=== PATIENT | male | born 1990 | race Asian ===

== ENCOUNTER 2025-08-05 12:32 | Emergency (ER) | payer SELFPAY ==
--- OUTSIDE RECORDS SUMMARY | 2025-08-05 12:34 | XMS REPORT | Continuity of Care Document ---
Author Name Unknown Address [address] [facility] [address] [place] [address] Organization [facility] [place] Address [address] [facility] [address] [place] [address] Care Team Providers Care Ict Business Development Manager Name Role Phone PCP, PATIENT DOES NOT HAVE A Primary Care Physic aaron ANA LUISA Denny Attending Clinician ANA LUISA Godoy Attending Clinician Unavailab [facility]ending Clinician Un available Unknown, Attending Attending Clinician Unavailab Goldberg, Adc Fam Pob I Attending Clinician UnavailSharee Holder Attending Clinician [phone] Doctor Unassigned, [place] Attending Clinician U navailable UNKNOWN, ATTENDING Attending Clinician ANA LUISA Godoy Admitting Clinician DALE Reynoso Admitting Clinician Unavail able Payers Payer Name Policy Type Policy Number Effective Date Expirati on Date Source Allergies, Adverse Reactions, Alerts Allergy Name Allergy Type Status Severity Reaction(s) Onset Date Inactive Date Treating Clinician Comments Source NO KNOWN ALLERGIE S Drug Class Active [facility] Social History Social Habit Start Date Stop Date Quantity Comments Source Sexual orientation U [facility] Exposure to SARS-CoV-2 (event) Yes [facility] Sex assigned at 1990 00:00:00 1990 00:00:00 [facility] Smoking Status Start Date Stop Date Source Tobacco smoking consumption unknown [facility] Vital Signs Vital Name Observation Time Observation Value Comments S ource Body temperature 2025-04-17 01:45:00 37 Madeline [facility] Systolic blood pressure 2025-04-17 01:44:00 151 mm[Hg] [facility] Diastolic blood pressure 2025-04-17 01:44:00 103 mm[Hg] [facility] Heart rate 2025-04-17 01:44:00 88 /min [facility] Respiratory rate 2025-04-17 01:44:00 18 /min [facility] Oxygen saturation in Arterial blood by Pulse oximetry 2025-04-17 01:44:00 96 /min [facility] Body height 2025-04-17 00:19:[address] [facility] Body weight 2025-04-17 00:19:[address] [facility] BMI 2025-04-17 00:19:00 53.98 kg/m2 [facility] Systolic blood pressure 2025-04-16 23:58:00 166 mm[Hg] [facility] Diastolic blood pressure 2025-04-16 23:58:00 84 mm[Hg] [facility] Heart rate 2025-04-16 23:58:00 101 /min [facility] rate 2025-04-16 23:58:00 16 /min [facility] Body weight 2025-04-16 23:58:[address] [facility] Oxygen saturation in Arterial blood by Pulse oximetry 2025-04-16 23:58:00 99 /min [facility] Procedures Procedure Date / Time Performed Performing Clinicia n Source EKG-12 LEAD 2025-04-17 01:41:15 [facility] 2025-04-17 00:55:00 [facility] COMP. METABOLIC PANEL (36668) 2025-04-17 00:55:00 Ana Luisa Katz [facility] CBC WITH DIFF 2025-04-17 00:55:00 Ana Luisa Katz [facility] XR CHEST 1 VW 2025-04-17 00:37:56 Ana Luisa Katz [facility] Encounters Start Date/Time End Date/Time Encounter Type Admission Type Attending Clinicians Care Facility Care Department Encounter ID Source 2025-04-16 19:20:00 2025-04-16 20:51:00 Emergency X ANA LUISA KATZ [facility] ERT [id number] [facility] 2025-04-16 18:45:00 2025-04-16 19:05:00 Nurse Visit Nurse, [facility] Unknown, Attending Nurse, [facility] 1..840.114 [id number] [id number] [facility] 2021-05-31 18:14:59 2021-05-31 18:34:59 Laboratory Only Lab, Adc Fam Pob I Aisha, Sharee [facility] 1..840.114 [id number] [id number] [facility] 2021-05-31 00:00:00 2021-05-31 00:00:00 Letter (Out) Doctor Unassigned, [place] [facility] 1..840.114 350.1.13.10 [id number] [facility] 2016-10-27 15:00:00 2016-10-27 23:59:00 Outpatient R UNKNOWN, ATTENDING [facility] RAD [id number] [facility] Results Test Description Test Time Test Comments Results Result Co mments Source [facility] (25398)2025-04-17 01:22:10* Test Item Value Reference Range Interpretation Comme nts NA (test code = 4500190234) 139 mmol/L 135-145 K (test code = 2979009029) 4 mmol/L 3.5-5.0 CL (test code = 9105908626) 105 mmol/L 98-108 CO2 TOTAL (test code = 8876488269) 24 mmol/L 23-31 AGAP (test code = 6736171853) 10 2-16 BUN (test code = 0762841983) 14 mg/dL 7-23 GLUCOSE (test code = 8915167189) 102 mg/dL 70-110 CREATININE (test code = 2160-0) 1.01 mg/dL 0.60-1.25 TOTAL BILI (test code = 9044324359) 0.8 mg/dL 0.1-1.1 CALCIUM (test code = 4837186149) 9.6 mg/dL 8.6-10.6 T PROTEIN (test code = 7815237810) 8.7 g/dL 6.3-8.2 H ALBUMIN (test code = 3815584639) 4.9 g/dL 3.5-5.0 ALK PHOS (test code = 8351880974) 53 U/L 34-122 ALTv (test code = 1742-6) 27 U/L 5-50 AST(SGOT) (test code = 7349291607) 45 U/L 13-40 H eGFR (test code = 50225-7) 100.1 mL/min/1.73m2 CKD-EPI eGFR (2020). Assuming creatinine has been stable day-to-day for at least three months, the eGFR indicates Category G1 (>= 90 mL/min/1.73 m2) Lab Interpretation (test code = 19567-1) Abnormal [facility] WITH [id number] 01:08:45* Test Item Value Reference Range Interpretation Comme nts WBC (test code = 6690-2) 9.32 4.20-10.70 RBC (test code = 789-8) 4.89 4.26-5.52 HGB (test code = 718-7) 14.6 g/dL 12.2-16.4 HCT (test code = 4544-3) 43.5 % 38.4-49.3 MCV (test code = 787-2) 89 fL 81.7-95.6 MCH (test code = 785-6) 29.9 pg 26.1-32.7 MCHC (test code = 786-4) 33.6 g/dL 31.2-35.0 RDW-SD (test code = 16214-1) 43.2 fL 38.5-51.6 RDW-CV (test code = 788-0) 13.2 % 12.1-15.4 PLT (test code = 777-3) 292 150-328 MPV (test code = 77350-3) 10.9 fL 9.8-13.0 NRBC/100 WBC (test code = 5164477231) 0 0.0-10.0 NRBC x10^3 (test code = 0723457538) See_Comment [Automated messa ge] The system which generated this result transmitted reference range: 10*3/?L. The reference range was not used to interpret this result as normal/abnormal. GRAN MAT (NEUT) % (test code = 770-8) 46.1 % IMM GRAN % (test code = 0869819088) 0.2 % LYMPH % (test code = 736-9) 41 % MONO % (test code = 5905-5) 9.5 % EOS % (test code = 713-8) 2.7 % BASO % (test code = 706-2) 0.5 % GRAN MAT x10^3(ANC) (test code = 2028125735) 4.29 10*3/uL 1.99-6.95 IMM GRAN x10^3 (test code = 9240126961) 0.00-0.06 LYMPH x10^3 (test code = 731-0) 3.82 10*3/uL 1.09-3.23 H MONO x10^3 (test code = 742-7) 0.89 10*3/uL 0.36-1.02 EOS x10^3 (test code = 711-2) 0.25 10*3/uL 0.06-0.53 BASO x10^3 (test code = 704-7) 0.05 10*3/uL 0.01-0.09 Lab Interpretation (test code = 45787-0) [facility]normal [facility] [id number] 00:57:31EXAM: XR CHEST 1 04/16/2025 7:34 PM HISTORY: 34 years old Male with chest pain TECHNIQUE: Portable AP view of the chest. COMPARISON: None FINDINGS: Lines/tubes and devices: None. Lungs and pleura: The lungs are clear. No focal consolidation,pneumothorax, or pleural effusion is seen. Cardiomediastinal: The cardiomediastinal silhouette is normal accountingfor technique. Musculoskeletal: No acute osseous abnormality.[facility] Notes Date/Time Note Provider Source 2025-04-16 20:50:43 Pt given printed and verbal discharge instructions regarding chest pain and HTN, encouraged hydration, Pt verbalized understanding of instructions, pt awake alert oriented, resp reg unlabored, skin w/d, color appropriate for race, moves all ext well,pt encouraged to follow up with pcp and cardiology Advised to seek medical attention for new/prolonged/worsening of symptoms PIV d'cd, dressing to site, catheter in tact. Awake, alert oriented, resp reg unlabored, skin w/d, pt leaving amb with steady gait, in no apparent distress, Randolph Doherty RN [facility] 2025-04-16 19:16:28 Patient arrived ambulatory to ED c/o left sided intermittent chest pain for a couple of days. No trauma or injuries recently. 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 Takes Lisinopril for HTN. 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 Today is Wednesday. He reports the pain is very mild only rates it a 1 out of 10. He reports no change in his pain with exertion, deep breathing or movement of his arms. No medication taken for his pain. No injury or trauma. No shortness of breath. No cough or congestion. He does not smoke. He does have a history of high blood pressure and admits to compliance with his medication. He last saw his PCP about 6 weeks ago. Here for evaluation. Past Medical History/Immunizations: History reviewed. No pertinent past medical history. Tetanus received in last 5 years: Unknown Allergies: No Known Allergies Past Social History: Substance & Sexual Activity No substance use or sexual activity history on file. Past Surgical History: History reviewed. No pertinent surgical history. Review of Systems: Review of Systems Constitutional: Negative for chills and fever. Respiratory: Negative for cough and shortness of breath. Cardiovascular: Positive for chest pain. Gastrointestinal: Negative for abdominal pain and vomiting. Genitourinary: Negative for dysuria. Musculoskeletal: Negative for arthralgias, neck pain and neck stiffness. Skin: Negative for wound. Neurological: Negative for dizziness. Psychiatric/Behavioral: Negative for agitation. Endocrine: Negative for goiter. Physical Exam: Physical Exam ED Triage Vitals [04/16/251918] Weight 180.5 kg (398 lb) Actual or estimated Estimated by patient/family report Height 1.829 m (6') BP (!) 186/104 Pulse 81 Resp 20 Temp 36.9 ?C (98.4 ?F) Temp source Oral SpO2 100 % Measured on Room air Physical Exam Vitals and nursing note reviewed. Constitutional: Appearance: Normal appearance. He is morbidly obese. HENT: Head: Normocephalic and atraumatic. Cardiovascular: Rate and Rhythm: Normal rate and regular rhythm. Pulses: Normal pulses. Pulmonary: Effort: Pulmonary effort is normal. No respiratory distress. Breath sounds: No wheezing. Chest: Chest wall: No tenderness. Abdominal: General: There is no distension. Palpations: Abdomen is soft. Tenderness: There is no abdominal tenderness. There is no guarding. Musculoskeletal: General: Normal range of motion. Cervical back: Normal range of motion and neck supple. Skin: General: Skin is warm and dry. Neurological: General: No focal deficit present. Mental Status: He is alert and oriented to person, place, and time. Radiology: XR CHEST 1 VW Final Result EXAM: XR CHEST 1 VW 04/16/2025 7:34 PM HISTORY: 34 years old Male with chest pain TECHNIQUE: Portable AP view of the chest. COMPARISON: None FINDINGS: Lines/tubes and devices: None. Lungs and pleura: The lungs are clear. No focal consolidation, pneumothorax, or pleural effusion is seen. Cardiomediastinal: The cardiomediastinal silhouette is normal accounting for technique. Musculoskeletal: No acute osseous abnormality. IMPRESSION No acute cardiopulmonary abnormality. Lab Results: Lab Results CBC WITH DIFF - Abnormal Result Value Ref Range WBC 9.32 4.20 - 10.70 10*3/?L RBC 4.89 4.26 - 5.52 10*6/?L HGB 14.6 12.2 - 16.4 g/dL HCT 43.5 38.4 - 49.3 % MCV 89.0 81.7 - 95.6 fL MCH 29.9 26.1 - 32.7 pg MCHC 33.6 31.2 - 35.0 g/dL RDW-SD 43.2 38.5 - 51.6 fL RDW-CV 13.2 12.1 - 15.4 % PLT 292 150 - 328 10*3/?L MPV 10.9 9.8 - 13.0 fL NRBC/100 WBC 0.0 0.0 - 10.0 /100 WBCs NRBC x10 3 <0.01 10*3/?L GRAN MAT (NEUT) % 46.1 % IMM GRAN % 0.20 % LYMPH % 41.0 % MONO % 9.5 % EOS % 2.7 % BASO % 0.5 % GRAN MAT x10 3 (ANC) 4.29 1.99 - 6.95 10*3/uL IMM GRAN x10 3 <0.03 0.00 - 0.06 10*3/uL LYMPH x10 3 3.82 (*) 1.09 - 3.23 10*3/uL MONO x10 3 0.89 0.36 - 1.02 10*3/uL EOS x10 3 0.25 0.06 - 0.53 10*3/uL BASO x10 3 0.05 0.01 - 0.09 10*3/uL COMP. METABOLIC PANEL (50234) - Abnormal NA 139 135 - 145 mmol/L K 4.0 3.5 - 5.0 mmol/L CL 105 98 - 108 mmol/L CO2 TOTAL 24 23 - 31 mmol/L AGAP 10 2 - 16 BUN 14 7 - 23 mg/dL GLUCOSE 102 70 - 110 mg/dL CREATININE 1.01 0.60 - 1.25 mg/dL TOTAL BILI 0.8 0.1 - 1.1 mg/dL CALCIUM 9.6 8.6 - 10.6 mg/dL T PROTEIN 8.7 (*) 6.3 - 8.2 g/dL ALBUMIN 4.9 3.5 - 5.0 g/dL ALK PHOS 53 34 - 122 U/L ALTv 27 5 - 50 U/L AST(SGOT) 45 (*) 13 - 40 U/L eGFR 100.1 mL/min/1.73m2 TROPONIN I - Normal TROPONIN I 0.013 <=0.034 ng/mL EKG: If EKG completed, see Procedure Note. Orders and Treatments: Orders Placed This Encounter Procedures XR CHEST 1 VW CBC WITH DIFF COMP. METABOLIC PANEL (05331) TROPONIN I No orders of the defined types were placed in this encounter. First Provider Eval: ED Events Date/Time Event User Comments 04/16/251914 Medical Screening Begins ANA LUISA KATZ DO -- 04/16/251914 First Provider Evaluation ANA LUISA KATZ DO -- ED COURSE Diagnosis/Impression as of 04/16/252040 Chest pain, unspecified type Results Procedures: EKG-12 Lead ROUTINE ONCE Date/Time: 04/16/2025 7:30 PM Performed by: Ana Luisa Katz DO Authorized by: Ana Luisa Katz DO ECG interpreted by ED Physician in the absence of a part maker: yes Interpretation: Interpretation: normal Rate: ECG rate: 97 ECG rate assessment: normal Rhythm: Rhythm: sinus rhythm Ectopy: Ectopy: none QRS: QRS axis: Normal QRS intervals: Normal QRS conduction: normal ST segments: ST segments: Normal T waves: T waves: normal Q waves: Abnormal Q-waves: not present MDM: Assessment & Plan Medical Decision Making The patient presents from home for evaluation for discomfort of his chest that he first noted on Wednesday. Today is Wednesday. He reports the pain is very mild only rates it a 1 out of 10. He reports no change in his pain with exertion, deep breathing or movement of his arms. No medication taken for his pain. No injury or trauma. No shortness of breath. No cough or congestion. He does not smoke. He does have a history of high blood pressure and admits to compliance with his medication. He last saw his PCP about 6 weeks ago. The patient is hypertensive upon arrival to the ER. He is morbidly obese. His heart is regular rhythm. His lungs are clear bilaterally. He has no pitting edema to his bilateral legs. Low concern for ACS based on his presentation. Will obtain EKG and check laboratory studies. Anticipate discharge home later. 2039 -The patient is doing well here in the ER. his chest x-ray shows no acute cardiopulmonary issues. His laboratory studies included normal troponin as well as normal glucose and kidney function. 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 He report he had no issues with his blood pressure when he was on the 40 mg tablets. Recommended that he increase his dose back to 40 mg daily and follow-up with his PCP in 1 week for a blood pressure check. He remained stable in the ER and is okay for discharge home with PCP follow-up in 1 week. Problems Addressed: Chest pain, unspecified type: acute illness or injury Amount and/or Complexity of Data Reviewed Labs: ordered. Decision-making details documented in ED Course. Radiology: ordered and independent interpretation performed. Decision-making details documented in ED Course. ECG/medicine tests: ordered and independent interpretation performed. Decision-making details documented in ED Course. Flowsheet Documentation: Scoring Tools: No data recorded Disposition/Condition: ED Disposition ED Disposition Discharge Condition Stable Comment -- Discharge Medications: Patient's Medications No medications on file Follow-up: Electronically signed by: Ana Lusia Katz DO 04/16/252040 [facility]
[2025-08-05] MEDS ORDERED: KETOROLAC 30 MG/ML INJ ONE (14:14)
[2025-08-05] MEDS ORDERED: ONDANSETRON 4 MG/2 ML VIAL ONE (14:14)
[2025-08-05] MEDS ORDERED: FAMOTIDINE 20 MG/2 ML VIAL IV ONE (14:14)
[2025-08-05] MEDS ORDERED: NA CHLORIDE 0.9% 1,000 ML ONE (14:15)
[2025-08-05 14:34] LABS: Absolute Lymphocytes (CBC) 0.8 K/uL (0.7-4.9); Hematocrit 47.5 % (39.6-49.0); Hemoglobin 15.6 g/dL (13.6-17.9); MCH 28.8 pg (27.0-35.0); MCHC 32.9 g/dL (32.0-36.0); MCV 87.4 fL (80-100); MPV 10.0 fL (7.6-11.3); Nucleated RBC Absolute Count 0.0 (0-0); Nucleated Red Blood Cells % 0.0 % (0-0); RBC Red Blood Cell Count 5.43 M/uL (4.33-5.43); White Blood Count 14.70 thou/uL (4.3-10.9)
[2025-08-05 16:30] LABS: ALT/SGPT 25.0 U/L (16-61); AST/SGOT 22.0 U/L (15-37); Albumin 4.0 g/dL (3.4-5.0); Albumin/Globulin Ratio 1.0 (1.1-1.8); Alkaline Phosphatase 66.0 U/L (45-117); Anion Gap 11.0 mEq/L (5.0-15.0); BUN Blood Urea Nitrogen 13.0 mg/dL (7-18); Globulin 3.9 g/dL (2.3-3.5); Glucose Level 110.0 mg/dL (74-106); Lipase 15.0 U/L (13-75); Potassium 4.0 mEq/L (3.5-5.1)
--- NOTE | 2025-08-05 16:32 | EDPHYS ---
Physician Documentation [facility] Name: Carrol Fallon Age: 34 yrs Sex: Male : 1990 Arrival Date: 08/05/2025 Time: 12:32 Bed 16 Private MD: ED Physician Nigel Long HPI: 08/05 16:22 This 34 yrs old Male presents to ER via Ambulatory with complaints of Vomiting. kb 16:22 Patient is a 34-year-old male who presents for nausea, vomiting, abdominal pain, kb diarrhea that started in the middle of the night last night. Denies fever. Child has similar symptoms.. Historical: - Allergies: 13:00 No Known Allergies; dd2 - PMHx: 13:00 Hypothyroidism; Hypertensive disorder; dd2 - PSHx: 13:00 Cholecystectomy; dd2 - Immunization history:: Adult Immunizations unknown. - Infectious Disease History:: Denies. - Social history:: Smoking status: Patient denies any tobacco usage or history of. ROS: 16:21 Constitutional: As per HPI kb Exam: 16:21 Constitutional: This is a well developed, well nourished patient who is awake, alert, kb and in no acute distress. Head/Face: Normocephalic, atraumatic. ENT: Moist Mucous membranes Cardiovascular: Regular rate Respiratory: Respirations even and unlabored. No increased work of breathing. Talking in full sentences Abdomen/GI: Soft, non-tender. No distention Skin: Warm, dry with normal turgor. Normal color. MS/ Extremity: Pulses equal, no cyanosis. Neurovascular intact. Full, normal range of motion. Neuro: Awake and alert, GCS 15, oriented to person, place, time, and situation. Vital Signs: 12:58 BP 146 / 92; Pulse 92; Resp 16; Temp 99; Pulse Ox 99% ; Weight 172.37 kg; Height 6 ft. dd2 0 in. ; Pain 10/10; 14:00 BP 131 / 85; Pulse 96; Resp 20; Pulse Ox 99% on R/A; kj2 15:58 BP 142 / 86; Pulse 94; Resp 18; Pulse Ox 99% on R/A; kj2 16:54 BP 128 / 74; Pulse 84; Resp 18; Temp 98.1; Pulse Ox 100% on R/A; kj2 12:58 Body Mass Index 51.54 (172.37 kg, 182.88 cm) dd2 12:58 Pain Scale: Adult dd2 MDM: 12:37 Medical Screening Exam initiated kb 16:22 Differential diagnosis: viral gastroenteritis, Abnormal electrolytes, dehydration. Data kb reviewed: vital signs, nurses notes. Test considered but Not performed: CT: CT scan considered but symptoms improved after treatment, patient has no abdominal tenderness. 16:31 Counseling: I had a detailed discussion with the patient and/or guardian regarding the kb historical points, exam findings, and any diagnostic results supporting the discharge/admit diagnosis, lab results, the need for outpatient follow up, a family practitioner, to return to the emergency department if symptoms worsen or persist or if there are any questions or concerns that arise at home. 08/05 13:11 Order name: CBC with Diff; Complete Time: 14:38 kb 08/05 13:11 Order name: CMP; Complete Time: 16:31 kb 08/05 13:11 Order name: Lipase; Complete Time: 16:31 kb 08/05 13:11 Order name: IV Saline Lock; Complete Time: 14:26 kb 08/05 13:11 Order name: Labs collected and sent; Complete Time: 14:26 kb 08/05 14:41 Order name: Labs - recollect needed: recollect chemistries; Complete Time: 15:49 eb Administered Medications: 14:25 Drug: Famotidine IVP 20 mg IVP once; dilute with 10 mL 0.9% NaCl; give over 2 minutes kj2 Route: IVP; Site: left upper arm; 15:00 Follow up: Response: No adverse reaction kj2 14:26 Drug: TORadol - Ketorolac IVP 15 mg IVP once Route: IVP; Site: left upper arm; kj2 16:56 Follow up: Response: No adverse reaction kj2 14:26 Drug: Ondansetron IVP 4 mg IVP once; over 2 minutes Route: IVP; Site: left upper arm; kj2 15:00 Follow up: Response: No adverse reaction kj2 14:26 Drug: NS 0.9% IV 1000 ml IV at 1 bolus Per protocol; to be given as a bolus over 60 kj2 minutes Route: IV; Rate: 1 bolus; Site: left upper arm; 16:55 Follow up: IV Status: Completed infusion; IV Intake: 1000ml kj2 Disposition: 17:26 Co-signature as Attending Physician, Nigel Long MD I reviewed the patient's care rn provided by the Advanced Practice Provider and agree with the diagnosis and treatment plan. Disposition Summary: 08/05/25 16:32 Discharge Ordered Notes: Location: Home kb Condition: Stable kb Diagnosis - Nausea with vomiting, unspecified kb - Diarrhea, unspecified kb Followup: kb - With: Emergency Department - When: As needed - Reason: Worsening of condition Followup: kb - With: Private Physician - When: 2 - 3 days - Reason: Recheck today's complaints, Continuance of care, Re-evaluation by your physician Discharge Instructions: - Discharge Summary Sheet kb - Viral Gastroenteritis, Adult, [id number] kb Forms: - Medication Reconciliation Form kb - Antibiotic Education kb - Prescription Opioid Use kb - Patient Portal Instructions kb - Leadership Thank You Letter kb Prescriptions: - ondansetron 4 mg Oral Tablet,disintegrating - take 1 tablet ORAL route every 6 hours as needed for nausea and vomiting; 12 kb tablet; Refills: 0, Product Selection Permitted Signatures: Dispatcher [employer] EDMS Daniella Crews, FOREIGN LAW CONSULTANT-C FOREIGN LAW CONSULTANT-Ckb Nigel Long MD MD rn Botello, Elizabeth eb Jordan, Krystal RN RN kj2 CAROL CARVALHO RN RN dd2 Corrections: (The following items were deleted from the chart) 13:00 13:00 PSHx: None; dd2 dd2 13:12 13:12 CBC+H.LAB.BRZ ordered. EDMS EDMS 13:12 13:12 COMPREHENSIVE METABOLIC PANEL+C.LAB.BRZ ordered. EDMS EDMS 13:12 13:12 LIPASE+C.LAB.BRZ ordered. EDMS EDMS
--- NOTE | 2025-08-05 16:32 | ER ---
Nurse's Notes [facility] Name: Carrol Fallon Age: 34 yrs Sex: Male : 1990 Arrival Date: 08/05/2025 Time: 12:32 Bed 16 Private MD: Diagnosis: Nausea with vomiting, unspecified;Diarrhea, unspecified Presentation: 08/05 12:58 Chief complaint: Patient states: WOKE AT 2 AM WITH N/V AND ABDOMINAL PAIN. PT REPORTS dd2 DIARRHEA. Coronavirus screen: diarrhea, fatigue, nausea, vomiting. Ebola Screen: No symptoms or risks identified at this time. Initial Sepsis Screen: Does the patient meet any 2 criteria? No. Patient's initial sepsis screen is negative. Does the patient have a suspected source of infection? No. Patient's initial sepsis screen is negative. Risk Assessment: Do you want to hurt yourself or someone else? Patient reports no desire to harm self or others. Onset of symptoms was August 05, 2025 at 02:00. 12:58 Method Of Arrival: Ambulatory dd2 12:58 Acuity: BELLA 3 dd2 Triage Assessment: 13:00 General: Appears in no apparent distress. uncomfortable, Behavior is calm, cooperative, dd2 appropriate for age. Pain: Complains of pain in abdomen Pain currently is 10 out of 10 on a pain scale. GI: Abd is soft and non tender X 4 quads. Reports lower abdominal pain, upper abdominal pain, diarrhea, nausea, vomiting. Historical: - Allergies: 13:00 No Known Allergies; dd2 - PMHx: 13:00 Hypothyroidism; Hypertensive disorder; dd2 - PSHx: 13:00 Cholecystectomy; dd2 - Immunization history:: Adult Immunizations unknown. - Infectious Disease History:: Denies. - Social history:: Smoking status: Patient denies any tobacco usage or history of. Screenin:00 [facility] ED Fall Risk Assessment (Adult) History of falling in the last 3 months, kj2 including since admission No falls in past 3 months (0 pts) Confusion or Disorientation No (0 pts) Intoxicated or Sedated No (0 pts) Impaired Gait No (0 pts) Mobility Assist Device Used No (0 pt) Altered Elimination No (0 pt) Score/Fall Risk Level 0 - 2 = Low Risk Maintained a safe environment, Hourly rounding (assess needs \T\ fall precautionary measures) done. Abuse screen: Denies threats or abuse. Denies injuries from another. Nutritional screening: No deficits noted. Tuberculosis screening: No symptoms or risk factors identified. Assessment: 14:00 General: Appears uncomfortable, Behavior is cooperative. Pain: Complains of pain in kj2 abdomen Pain currently is 6 out of 10 on a pain scale. Neuro: Level of Consciousness is awake, alert, obeys commands, Oriented to person, place, time, situation. Cardiovascular: Patient's skin is warm and dry. Respiratory: Airway is patent Respiratory effort is unlabored. GI: Abdomen is Last BM was August 05, 2025. : No signs and/or symptoms were reported regarding the genitourinary system. 15:00 Reassessment: Patient appears in no apparent distress at this time. Patient and/or kj2 family updated on plan of care and expected duration. Pain level reassessed. Patient is alert, oriented x 3, equal unlabored respirations, skin warm/dry/pink. 16:00 Reassessment: Patient appears in no apparent distress at this time. Patient and/or kj2 family updated on plan of care and expected duration. Pain level reassessed. Patient is alert, oriented x 3, equal unlabored respirations, skin warm/dry/pink. 16:54 Reassessment: Patient appears in no apparent distress at this time. Patient and/or kj2 family updated on plan of care and expected duration. Pain level reassessed. Vital Signs: 12:58 BP 146 / 92; Pulse 92; Resp 16; Temp 99; Pulse Ox 99% ; Weight 172.37 kg; Height 6 ft. dd2 0 in. ; Pain 10/10; 14:00 BP 131 / 85; Pulse 96; Resp 20; Pulse Ox 99% on R/A; kj2 15:58 BP 142 / 86; Pulse 94; Resp 18; Pulse Ox 99% on R/A; kj2 16:54 BP 128 / 74; Pulse 84; Resp 18; Temp 98.1; Pulse Ox 100% on R/A; kj2 12:58 Body Mass Index 51.54 (172.37 kg, 182.88 cm) dd2 12:58 Pain Scale: Adult dd2 ED Course: 12:36 Patient arrived in ED. sj2 12:36 Daniella Crews FNP-C is PHCP. kb 12:36 Nigel Long MD is Attending Physician. kb 13:00 Triage completed. dd2 13:00 Arm band placed on right wrist. dd2 14:00 Patient has correct armband on for positive identification. Bed in low position. Call kj2 light in reach. Provided Education on: call light. 14:03 Ebony Causey, RN is Primary Nurse. kj2 14:18 Initial lab(s) drawn, by me, sent to lab. Inserted saline lock: 20 gauge in left upper em1 arm, using aseptic technique. Blood collected. Flushed with 10 mL NS. 16:54 No provider procedures requiring assistance completed. kj2 16:55 IV discontinued, intact, bleeding controlled, No redness/swelling at site. Pressure kj2 dressing applied. Administered Medications: 14:25 Drug: Famotidine IVP 20 mg IVP once; dilute with 10 mL 0.9% NaCl; give over 2 minutes kj2 Route: IVP; Site: left upper arm; 15:00 Follow up: Response: No adverse reaction kj2 14:26 Drug: TORadol - Ketorolac IVP 15 mg IVP once Route: IVP; Site: left upper arm; kj2 16:56 Follow up: Response: No adverse reaction kj2 14:26 Drug: Ondansetron IVP 4 mg IVP once; over 2 minutes Route: IVP; Site: left upper arm; kj2 15:00 Follow up: Response: No adverse reaction kj2 14:26 Drug: NS 0.9% IV 1000 ml IV at 1 bolus Per protocol; to be given as a bolus over 60 kj2 minutes Route: IV; Rate: 1 bolus; Site: left upper arm; 16:55 Follow up: IV Status: Completed infusion; IV Intake: 1000ml kj2 Medication: 16:54 VIS not applicable for this client. kj2 Intake: 16:55 IV: 1000ml; Total: 1000ml. kj2 Outcome: 16:32 Discharge ordered by . kb 16:55 Discharged to home ambulatory, with family, kj2 16:55 Condition: stable 16:55 Discharge instructions given to patient, family, Instructed on discharge instructions, follow up and referral plans. Demonstrated understanding of instructions, follow-up care, 17:03 Patient left the ED. kj2 Signatures: Daniella Crews, TORO-C [employer]-[place] em1 Ebony Causey RN RN kj2 CAROL CARVALHO RN RN dd2 Linette Flores 2 Corrections: (The following items were deleted from the chart) 13:00 13:00 PSHx: None; dd2 dd2
[2025-08-05 23:13] VITALS: BP 128/74; TEMP 98.1; O2SAT 100
== END 2025-08-05 17:03 | disposition home or self-care (01) ==
LOC: ER 12:32
DX: R11.2 Nausea with vomiting, unspecified (principal); R19.7 Diarrhea, unspecified
CPT/HCPCS: 36415; 80053; 83690; 85025; 96361; 96374; 96375; 99284; J1885; J2405; J7030